=== PATIENT | male | born 1960 | race African-American/Black ===

== ENCOUNTER → 2016-10-14 | Day surgery (SDC) | payer MEDICARE ==
[2016-10-14] VITALS (11 sets, daily range): BP systolic 111–136; BP diastolic 70–93
[~2016-10-14] VITALS: Ht 180.3 cm; Wt 68.9 kg
[~2016-10-14] MED LIST: ALEVE220 M2 PO; Alfentanil 2ml Inj ONE; Atropine Inj 1mg/10ml Syr IV PRN; Bupivacaine w/Epi 0.25% 30ml Vial INJ ONE; DOXAZOSIN MESYLA4 MG ORAL; DiphenhydrAMINE 50mg/ml Inj IVP PRN; EPINEPHrine 1mg/1ml Amp ONE; HYDROmorphone 1mg/ml Carpuject SUBQ PRN; Hydromorphone 0.5mg/0.5ml inj IVP PRN; Ketorolac 30mg Inj IV PRN; Ketorolac 60mg Inj IV PRN; LORazepam Inj 2mg/ml 1ml IV PRN; LR 1000ml 1,000 ML IVLG SCH; LR 1000ml ONE; Labetalol 5mg/ml 20ml vial IV PRN; Lidocaine 1% MPF 10mg/ml 5ml ONE; Meperidine 25mg/ml Inj IV PRN; Metoclopramide 10mg/2ml Inj IVP PRN; Midazolam 2mg/2ml Inj IVP PRN; Midazolam 2mg/2ml Inj ONE; Morphine Sulfate 2mg/ml Inj IVP PRN; NS Irrig 4000ml IRRIG ONE; Norco 5mg/325mg tab ORAL PRN; Norco 7.5mg/325mg tab ORAL PRN; Oxycodone/Acetaminophen 5-325 ORAL PRN; PT TO BRING LIST; Propofol 10mg/ml 20ml IV ONE; Sterile Water Irrig 1000ml IRRIG ONE; Tylenol #3 tab (300mg/30mg) ORAL PRN; fentaNYL 100 mcg/2 mL IV PRN
--- NOTE | 2016-10-14 06:36 | Pre-Procedure Note/Attestation ---
Pre-Procedure Note/Attestation Complete Prior to Procedure Planned Procedure: left Procedure Narrative: Left knee arthroscopy with partial menisectomy Indications for Procedure Pre-Operative Diagnosis: Left knee meniscus tear Attestation I attest that I discussed the nature of the procedure; its benefits; risks and complications; and alternatives (and the risks and benefits of such alternatives ), prior to the procedure, with the patient (or the patient's legal commercial pest control representative). I attest that, if there was a reasonable possibility of needing a blood transfusion, the patient (or the patient's legal commercial pest control representative) was given the [facility] standardized written summary, pursuant to the Baljinder Pat Blood Safety Act ([place] Health and Safety Code # 1645, as amended). I attest that I re-evaluated the patient just prior to the surgery and that there has been no change in the patient's H&P, except as documented below: RIA HERNANDEZ Oct 14, 2016 06:36
--- NOTE | 2016-10-14 08:07 | Anethesia Preoperative Eval ---
Anesthesia Pre-op PMH/ROS General Date of Evaluation: Oct 14, 2016 Time of Evaluation: 09:22 Anesthesiologist: Judy ASA Score: ASA 3 Mallampati Score Class I : Soft palate, uvula, fauces, pillars visible Class II: Soft palate, uvula, fauces visible Class III: Soft palate, base of uvula visible Class IV: Only hard plate visible Mallampati Classification: Class II Surgeon: Sean Diagnosis: L knee Pain Surgical Procedure: L Knee Arthroscopy Anesthesia History: none Family History: no anesthesia problems Allergies: Coded Allergies: Shrimp (Verified Allergy, Severe, 10/13/16) ANAPHYLACTIC SHOCK Medications: see eMAR Past Medical History Cardiovascular: Reports: HTN Gastrointestinal/Genitourinary: Reports: other - BPH Neurologic/Psychiatric: Reports: depression/anxiety, other Endocrine: Reports: DM PSxH Narrative: [facility] Anesthesia Pre-op Phys. Exam Physician Exam Last Vital Signs Date Time Temp Pulse Resp B/P Pulse Ox O2 Delivery O2 Flow Rate FiO2 10/14/16 07:28 98.6 60 17 117/83 99 Room Air Constitutional: NAD Neurologic: CN 2-12 intact Cardiovascular: RRR Respiratory: CTA Gastrointestinal: S/NT/ND Airway Exam Mallampati Score: Class II MO: limited ROM: limited Teeth: intact Anesthesia Pre-op A/P Risk Assessment & Plan Assessment: ASA 3 Plan: GA, BIS Pre-Antibiotics Dru Grams Ancef IV Given Within 1 Hr of Incision: Yes Time Given: 09:31 Davian Kim MD Oct 14, 2016 08:07
--- NOTE | 2016-10-14 08:09 | Immediate Post-Op Evaluation ---
Immediate Post-Op Evalulation Immediate Post-Op Evalulation Procedure: L Knee Arthroscopy Date of Evaluation: Oct 14, 2016 Time of Evaluation: 10:28 IV Fluids: 800 LR Blood Products: 0 Estimated Blood Loss: 6 Urinary Output: 0 Blood Pressure Systolic: 111 Blood Pressure Diastolic: 72 Pulse Rate: 67 Respiratory Rate: 16 O2 Sat by Pulse Oximetry: 100 Temperature (Fahrenheit): 98.7 Pain Score (1-10): 2 Nausea: No Vomiting: No Complications 0 Patient Status: awake, reacts, patent, extubated, none Dru Grams Ancef IV Given Within 1 Hr of Incision: Yes Time Given: 09:31 Davian Kim MD Oct 14, 2016 08:09
--- NOTE | 2016-10-14 08:09 | 48 Hour Post Anesthesia Eval ---
Post Anesthesia Evaluation Procedure: L Knee Arthroscopy Date of Evaluation: Oct 14, 2016 Time of Evaluation: 12:47 Blood Pressure Systolic: 126 0: 81 Pulse Rate: 72 Respiratory Rate: 18 Temperature (Fahrenheit): 98.6 O2 Sat by Pulse Oximetry: 100 Airway: patent Nausea: No Vomiting: No Pain Intensity: 3 Hydration Status: adequate Cardiopulmonary Status: Stable Mental Status/LOC: patient returned to baseline Follow-up Care/Observations: 0 Post-Anesthesia Complications: 0 Follow-up care needed: ready to discharge Davian Kim MD Oct 14, 2016 08:09
--- NOTE | 2016-10-14 09:25 | Brief Operative Note ---
Immediate Post Operative Note Operative Note Pre-op Diagnosis: Left knee meniscus tear Procedure: Left knee arthroscopy with partial menisectomy Post-op Diagnosis: same as pre-op Findings: consistent w/pre-op dx studies Surgeon: Sean Anesthesiologist: Judy Anesthesia: general Specimen: none Complications: none Condition: stable Estimated Blood Loss: none Drains: none Implant(s) used?: No RIA HERNANDEZ Oct 14, 2016 09:24
--- NOTE | 2016-10-14 11:17 | Operative Note - Dictated ---
DATE OF SERVICE: 10/14/2016 SURGEON[place] Jeffry Estr[place] [place] BOILER OPERATOR: None. ANESTHESIA: General plus local. COMPLICATIONS: None. ANTIBIOTICS: Ancef. PREOPERATIVE DIAGNOSES: Left knee: 1. Medial compartment arthritis. 2. Trochlear arthritis. 3. Medial meniscus tear. POSTOPERATIVE DIAGNOSES: Left knee: 1. Medial compartment arthritis. 2. Trochlear arthritis. 3. Medial meniscus tear. PROCEDURE PERFORMED: Left knee arthroscopy with: 1. Trochlear chondroplasty. 2. Medial femoral compartment chondroplasty. 3. Partial medial meniscectomy. HISTORY: The patient has had longstanding left knee pain refractory to nonoperative management. MRI confirmed the diagnosis. All risks, benefits, and alternatives to surgical intervention were discussed in great detail. Risks included, but were not limited to, bleeding, infection, neurovascular injury, need for additional surgical intervention, failure of pain relief, arthrofibrosis, complications of anesthesia, blood clots, stroke, heart attack, potentially . He understood these risks, amongst others, and consent was signed. PROCEDURE IN DETAIL: The patient was brought into the operating room, placed supine on the operating table. The left knee was correctly verified for surgical site and prepped and draped in standard sterile fashion. Exam under anesthesia revealed trace effusion with no laxity. Range of motion was normal and symmetric with the contralateral side. ANTEROLATERAL AND ANTEROMEDIAL PORTALS WERE MARKED AND INJECTED WITH 0.25% MARCAINE WITH EPINEPHRINE. A DIAGNOSTIC ARTHROSCOPY WAS THEN UNDERTAKEN. IT REVEALED THE FOLLOWIN. Normal suprapatellar pouch. 2. Normal patella. 3. 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 4. Normal medial gutter. 5. Normal lateral gutter. 6. Normal lateral meniscus. 7. Normal lateral compartment. 8. Normal ACL. 9. Normal PCL. 10. Diffuse grade 3 with minimal grade 4 changes diffusely about the medial femoral condyle (with some loose edges of cartilage). 11. Posterior horn medial meniscus tear with flap. In the medial compartment, the flap tear was resected using an up biter and 4.0 mm shaver. It was contoured to a stable border and tested with a probe and found to be stable after resection. Debridement was undertaken of all the loose edges of the chondrosis of the medial femoral condyle. The entire medial femoral condyle was involved with the chondral changes. Probe was used to test the edges of the chondral surface to check that loose bodies would not form after debridement. The trochlea was then debrided similarly. All fluid and debris were evacuated from the knee. A 10 mL of 0.25% Marcaine with epinephrine were injected. The wounds were copiously irrigated and reapproximated using 4-0 Monocryl in subcuticular fashion. Steri-Strips were used over Mastisol. Dry sterile dressing was applied. A compressive stocking was fitted. There were no complications. I attest that I performed the entire operation. He was transferred to recovery in good condition. Jefrfy Estrada M.D. ([facility]) DR: Mile JOB#: [id number] CC:
--- NOTE | 2016-10-17 15:01 | Cardiology Report ---
APPROVED REPORT EKG Measurement Heart [id number] Sinus bradycardia with 1st degree AV block Otherwise normal ECG
== END | disposition home or self-care (01) ==
LOC: SUR 06:44
DX: M23.222 Derangement of posterior horn of medial meniscus due to old tear or injury, left knee (principal); M17.12 Unilateral primary osteoarthritis, left knee; E11.9 Type 2 diabetes mellitus without complications; I10 Essential (primary) hypertension; N40.0 Benign prostatic hyperplasia without lower urinary tract symptoms; F32.9 Major depressive disorder, single episode, unspecified; F41.9 Anxiety disorder, unspecified; Z91.013 Allergy to seafood
CPT/HCPCS: 29881; 82962; 93005; 97161; G8978; G8979; G8980; J0171; J0690; J2250; J2405; J2704; J3490; J7120; 94003; 94150